=== PATIENT | female | born 1960 | race Two or more races ===

== ENCOUNTER 2024-06-30 16:25 | Emergency (ER) | payer MEDICAID, OTHER ==
[~2024-06-30] VITALS: Ht 144.8 cm; Wt 44.0 kg
[~2024-06-30 16:25] MED LIST: ACET-2605 GT; ACET-868 GT; ALPR0.5T GT; BISA10SU11 RC; CHLO473M5 MM; CLOB15CR4 TP; CRAN425C6 GT; ENAL2.5T17 GT; FERR325T28 GT; IPRA4AER IH; LABE100T5 GT; LACT-209 GT; LANS30CA54 GT; LEVE100S GT; MAGN400O6 GT; NA P133E RC; SERT100T GT; TRAM50TA2 GT
[2024-06-30 20:56] VITALS: BP 115/72; TEMP 99.1; O2SAT 96
== END 2024-06-30 21:07 ==
LOC: ER 16:30
DX: N90.7 Vulvar cyst (principal); F41.9 Anxiety disorder, unspecified; G40.909 Epilepsy, unspecified, not intractable, without status epilepticus; G93.49 Other encephalopathy; I10 Essential (primary) hypertension; K21.9 Gastro-esophageal reflux disease without esophagitis; Z79.899 Other long term (current) drug therapy; Z88.0 Allergy status to penicillin

== ENCOUNTER 2025-03-11 04:33 | Inpatient (IN) | payer OTHER ==
[~2025-03-11] VITALS: Ht 165.1 cm; Wt 45.2 kg
[2025-03-11 04:56] LABS: PLATELET COUNT (AUTO) 324 K/uL (150-450); RED BLOOD CELL COUNT(AUTO) 4.02 MIL/uL (4.0-5.2); RED CELL DISTRIBUTION WIDTH 16.1 % (11.5-15.0); WHITE BLOOD COUNT (AUTO) 13.1 K/uL (4.3-11.0)
[2025-03-11 05:05] LABS: CALCIUM, SERUM 8.6 mg/dL (8.5-10.1); CREATININE 1.0 mg/dL (0.6-1.3); SODIUM SERUM 135.0 mmol/L (136-145); UREA NITROGEN, BLOOD 66.0 mg/dL (7-18)
[2025-03-11] MEDS ORDERED: ACETAMINOPHEN 650 MG/SUPP.RECT RC ONE (05:05)
[2025-03-11] MEDS: ACETAMINOPHEN 650 MG/SUPP.RECT RC ONE (05:16)
[2025-03-11] MEDS: IV NS 0.9% 1,000 ML BAG IV ONE (05:16)
[2025-03-11 05:17] LABS: ASPARTATE AMINOTRANSFERASE 14.0 U/L (15-37); TOTAL PROTEIN, SERUM 7.1 g/dL (6.4-8.2)
[2025-03-11 05:30] LABS: LYMPHOCYTES % (MANUAL) 3 % (16-48); MONOCYTES % (MANUAL) 1 % (0-11.0); NEUTROPHILS % (MANUAL) 96 (42-76); PLATELET ESTIMATE ADEQUATE
[2025-03-11 05:35] LABS: INR 1.05 (0.91-1.10)
[2025-03-11 05:37] LABS: AMPHETAMINE, URINE NEGATIVE (NEGATIVE); BARBITURATE, URINE NEGATIVE (NEGATIVE); BENZODIAZEPINE, URINE NEGATIVE (NEGATIVE); CANNABINOID, URINE NEGATIVE (NEGATIVE); COCCAINE, URINE NEGATIVE (NEGATIVE); OPIATE, URINE NEGATIVE (NEGATIVE)
[2025-03-11] MEDS ORDERED: LORAZEPAM INJ 2 MG/ML VIAL ONE (05:44)
[2025-03-11] MEDS: LORAZEPAM INJ 2 MG/ML VIAL IV ONE (05:47)
[2025-03-11 06:00] LABS: APPEARANCE,URINE TURBID (CLEAR)
[2025-03-11 06:01] LABS: UGLUCOSE NEGATIVE (NEGATIVE)
[2025-03-11 06:02] LABS: BLOOD, URINE TRACE Ery/uL (NEGATIVE)
[2025-03-11 06:03] LABS: LEUKOCYTE ESTERASE ,URINE LARGE (NEGATIVE); NITRITE, URINE NEGATIVE (NEGATIVE)
[2025-03-11] MEDS ORDERED: CEFEPIME 1 GM VIAL ONE (06:17)
[2025-03-11] MEDS: CEFEPIME 1 GM in IV D5W 50 ML IV ONE (06:25)
[2025-03-11] MEDS: IV LR 1000 ML 1,000 ML IV ONE (06:25)
[2025-03-11 06:26] LABS: ADD URINE CULTURE YES; SQUAMOUS EPITHELIAL CELL,UR 0-2 /HPF (None Seen)
[2025-03-11 06:31] LABS: LACTIC ACID 3.4 mmol/L (0.4-2.0)
[2025-03-11] MEDS ORDERED: HALOPERIDOL LACTATE INJ 5 MG/ML VIAL ONE (06:42)
[2025-03-11] MEDS: HALOPERIDOL LACTATE INJ 5 MG/ML VIAL IV ONE (06:47)
[2025-03-11] MEDS ORDERED: PARO20TA7 GT (09:35)
[2025-03-11] MEDS ORDERED: ASPI-1169 GT (09:35)
[2025-03-11] MEDS ORDERED: LORA-258 GT (09:35)
[2025-03-11] MEDS ORDERED: DOCU100C36 GT (09:35)
[2025-03-11] MEDS ORDERED: QUET50TA PO (09:35)
[2025-03-11] MEDS ORDERED: AMIN30LI66 GT (09:35)
[2025-03-11] MEDS ORDERED: VALP250S22 GT (09:35)
[2025-03-11] MEDS ORDERED: MULT-213 GT (09:35)
[2025-03-11] MEDS ORDERED: LIDO30AD10 TP (09:35)
[2025-03-11] MEDS ORDERED: ASCO500T20 GT (09:35)
[2025-03-11] MEDS ORDERED: QUET25TA GT (09:35)
[2025-03-11] MEDS: NOREPINEPHRINE 8 MG in IV NS 0.9% 250 ML IV ONE (10:20)
[2025-03-11] MEDS ORDERED: ONDANSETRON HCL/PF 4 MG/2 ML VIAL IVP PRN (11:00)
[2025-03-11] MEDS ORDERED: MAGNESIUM HYDROXIDE 30 ML UDC PO PRN (11:00)
[2025-03-11] MEDS ORDERED: ACETAMINOPHEN 325 MG TABLET PO PRN (11:00)
[2025-03-11] MEDS ORDERED: DOSING PER PHARMACY-CEFEPIME IVPB XX PRN (11:00)
[2025-03-11] MEDS ORDERED: MAG HYDROX/AL HYDROX/SIMETH 30 ML UDC PO PRN (11:00)
[2025-03-11] MEDS ORDERED: ZOLPIDEM TARTRATE 5 MG TABLET PO PRN (11:00)
[2025-03-11] MEDS: ENOXAPARIN SODIUM 40 MG/0.4 ML DISP.SYRIN SQ SCH (11:58)
[2025-03-11 12:00] VITALS: BP 95/61; TEMP 97.1; O2SAT 97
[2025-03-11] MEDS: IV NS 0.9% 1,000 ML IV PRN (14:10)
[2025-03-11] MEDS ORDERED: MAGNESIUM HYDROXIDE 30 ML UDC GT PRN (15:00)
[2025-03-11] MEDS ORDERED: BISACODYL SUPP (10 MG) 10 MG/SUPP.RECT SUPP.RECT RC PRN (15:00)
[2025-03-11] MEDS ORDERED: NA PHOS,M-B/NA PHOS,DI-BA 1 EA ENEMA RC PRN (15:00)
[2025-03-11 16:00] VITALS: BP 119/62; TEMP 98.1; O2SAT 95
[2025-03-11] MEDS: VALPROIC ACID 250 MG/5 ML UDC GT SCH (16:33)
[2025-03-11] MEDS: PROSOURCE / PROSTAT (PYXIS) 30 ML UDC GT SCH (16:33)
[2025-03-11] MEDS: LABETALOL HCL (100MG) 100 MG TABLET GT SCH (16:34)
[2025-03-11] MEDS: LORAZEPAM 0.5 MG TABLET GT PRN (16:34)
[2025-03-11] MEDS ORDERED: METOPROLOL TARTRATE 25 MG TABLET PO PRN (17:30)
[2025-03-11] MEDS: JEVITY 1.2 CAL 1,000 ML BOTTLE GT SCH (18:28)
[2025-03-11] MEDS: ALBUTEROL FS 2.5 MG/3 ML VIAL.NEB NEB SCH (19:30)
[2025-03-11 19:46] VITALS: O2SAT 96; O2SAT 97
[2025-03-11] MEDS: IPRATROPIUM NEB FS 0.5 MG/2.5 ML AMPUL.NEB NEB SCH (19:46)
[2025-03-11 20:00] VITALS: BP 96/56; TEMP 101.3; O2SAT 91; O2SAT 96
[2025-03-11] MEDS: ACETAMINOPHEN 325 MG TABLET PO PRN (20:00)
[2025-03-11] MEDS: QUETIAPINE FUMARATE 25 MG TABLET PO SCH (21:53)
[2025-03-11] MEDS: CLOBETASOL 0.05% OINT 30 GM TUBE TP SCH (21:53)
[2025-03-11] MEDS: LEVETIRACETAM SOL (5 ML) 100 MG/ML UDC GT SCH (21:53)
[2025-03-12] VITALS (14 sets, daily range): BP systolic 94–135; BP diastolic 55–87; TEMP 97.9–100.8; O2SAT 95–100
[2025-03-12] MEDS: CEFEPIME 2 GM in IV D5W 100 ML IV SCH (05:07)
[2025-03-12 06:03] LABS: PLATELET COUNT (AUTO) 344 K/uL (150-450); RED BLOOD CELL COUNT(AUTO) 3.89 MIL/uL (4.0-5.2); RED CELL DISTRIBUTION WIDTH 16.7 % (11.5-15.0); WHITE BLOOD COUNT (AUTO) 21.5 K/uL (4.3-11.0)
[2025-03-12 06:17] LABS: CALCIUM, SERUM 7.9 mg/dL (8.5-10.1); CREATININE 0.8 mg/dL (0.6-1.3); PHOSPHORUS 3.9 mg/dL (2.5-4.9); SODIUM SERUM 144.0 mmol/L (136-145); UREA NITROGEN, BLOOD 38.0 mg/dL (7-18)
[2025-03-12] MEDS: PAROXETINE HCL 20 MG TABLET GT SCH (08:55)
[2025-03-12] MEDS: PANTOPRAZOLE 40 MG TABLET.DR PO SCH (08:55)
[2025-03-12] MEDS: ASPIRIN 81 MG TAB.CHEW GT SCH (08:55)
[2025-03-12] MEDS: MULTIVIT W/MINERALS 1 TAB TABLET GT SCH (08:56)
[2025-03-12] MEDS: QUETIAPINE FUMARATE 25 MG TABLET GT SCH (08:56)
[2025-03-12] MEDS: ASCORBIC ACID 500 MG TABLET GT SCH (08:57)
[2025-03-12] MEDS: DOCUSATE SODIUM 100 MG CAPSULE PO SCH (08:57)
[2025-03-12] MEDS: LIDOCAINE 5% (PATCH) 1 EA PATCH TP SCH (09:07)
[2025-03-13] VITALS (13 sets, daily range): BP systolic 103–142; BP diastolic 56–78; TEMP 98.4–99.3; O2SAT 96–99
[2025-03-13 07:14] LABS: PLATELET COUNT (AUTO) 320 K/uL (150-450); RED BLOOD CELL COUNT(AUTO) 3.28 MIL/uL (4.0-5.2); RED CELL DISTRIBUTION WIDTH 16.0 % (11.5-15.0); WHITE BLOOD COUNT (AUTO) 15.9 K/uL (4.3-11.0)
[2025-03-13 07:23] LABS: CALCIUM, SERUM 8.1 mg/dL (8.5-10.1); CREATININE 0.5 mg/dL (0.6-1.3); PHOSPHORUS 3.1 mg/dL (2.5-4.9); SODIUM SERUM 150.0 mmol/L (136-145); UREA NITROGEN, BLOOD 22.0 mg/dL (7-18)
[2025-03-13 07:34] LABS: CREATININE, URINE < 13.0 MG/DL (30.0-125.0); URINE SODIUM, RANDOM 120 mmol/l (40-220); URINE TOTAL PROTEIN 28.5 mg/dL (0-11.9)
[2025-03-13] MEDS: IV D5W 1,000 ML IV ONE (10:23)
[2025-03-13] MEDS: DOCUSATE SODIUM LIQ 100 MG/10 ML UDC GT SCH (10:28)
[2025-03-13] MEDS: Z GUARD REMEDY 4 OZ OINT TP PRN (10:29)
[2025-03-13 10:47] LABS: EOSINOPHILS % (MANUAL) 1 % (0-4); LYMPHOCYTES % (MANUAL) 4 % (16-48); MONOCYTES % (MANUAL) 9 % (0-11.0); MYELOCYTES % 1 % (0-0); NEUTROPHILS % (MANUAL) 85 (42-76); PLATELET ESTIMATE ADEQUATE
[2025-03-13] MEDS: CEFEPIME 2 GM in IV D5W 100 ML IV SCH (16:29)
[2025-03-13] MEDS: FREE WATER VIA TUBE FEEDING GT SCH (18:07)
[2025-03-13] MEDS: ACETAMINOPHEN ES 500 MG TABLET GT PRN (18:07)
[2025-03-13] MEDS: LEVOFLOXACIN (250MG) 250 MG TABLET GT SCH (20:30)
[2025-03-14] VITALS (12 sets, daily range): BP systolic 117–128; BP diastolic 66–78; TEMP 98.4–99.1; O2SAT 94–99
[2025-03-14 06:21] LABS: PLATELET COUNT (AUTO) 347 K/uL (150-450); RED BLOOD CELL COUNT(AUTO) 3.24 MIL/uL (4.0-5.2); RED CELL DISTRIBUTION WIDTH 16.3 % (11.5-15.0); WHITE BLOOD COUNT (AUTO) 18.4 K/uL (4.3-11.0)
[2025-03-14 07:34] LABS: ASPARTATE AMINOTRANSFERASE 12.0 U/L (15-37); CALCIUM, SERUM 7.6 mg/dL (8.5-10.1); CREATININE 0.4 mg/dL (0.6-1.3); PHOSPHORUS 3.3 mg/dL (2.5-4.9); SODIUM SERUM 138.0 mmol/L (136-145); TOTAL PROTEIN, SERUM 5.7 g/dL (6.4-8.2); UREA NITROGEN, BLOOD 18.0 mg/dL (7-18)
[2025-03-14] MEDS: ALBUMIN 25% 25 GM in PREMIX 1 EA IV ONE (10:05)
[2025-03-15] VITALS (9 sets, daily range): BP systolic 106–116; BP diastolic 62–64; TEMP 98.1–99.7; O2SAT 96–100
[2025-03-15 06:40] LABS: PLATELET COUNT (AUTO) 407 K/uL (150-450); RED BLOOD CELL COUNT(AUTO) 3.19 MIL/uL (4.0-5.2); RED CELL DISTRIBUTION WIDTH 15.7 % (11.5-15.0); WHITE BLOOD COUNT (AUTO) 13.9 K/uL (4.3-11.0)
[2025-03-15 07:02] LABS: CALCIUM, SERUM 8.1 mg/dL (8.5-10.1); CREATININE 0.4 mg/dL (0.6-1.3); PHOSPHORUS 3.6 mg/dL (2.5-4.9); SODIUM SERUM 139.0 mmol/L (136-145); UREA NITROGEN, BLOOD 15.0 mg/dL (7-18)
[2025-03-15] MEDS ORDERED: LEVO250T59 GT (11:11)
[2025-03-15] MEDS ORDERED: DOCU50LI GT (11:11)
[2025-03-15] MEDS ORDERED: IPRA0.2S9 NEB (11:11)
== END 2025-03-15 15:00 | DRG 720 ==
LOC: ER 04:37 → TELE1 10:13 → MEDSG1 03-12 10:17
PROVIDERS: ADMIT Student in an Organized Health Care Education/Training Program; ATTEND Student in an Organized Health Care Education/Training Program
DX: A41.59 Other Gram-negative sepsis (principal); E87.20 Acidosis, unspecified; E43 Unspecified severe protein-calorie malnutrition; G81.91 Hemiplegia, unspecified affecting right dominant side; E87.0 Hyperosmolality and hypernatremia; G93.49 Other encephalopathy; Z93.0 Tracheostomy status; R13.10 Dysphagia, unspecified; E86.9 Volume depletion, unspecified; J96.10 Chronic respiratory failure, unspecified whether with hypoxia or hypercapnia; N39.0 Urinary tract infection, site not specified; B96.89 Other specified bacterial agents as the cause of diseases classified elsewhere; L89.899 Pressure ulcer of other site, unspecified stage; B96.4 Proteus (mirabilis) (morganii) as the cause of diseases classified elsewhere; N17.9 Acute kidney failure, unspecified; I10 Essential (primary) hypertension; G40.909 Epilepsy, unspecified, not intractable, without status epilepticus; F03.94 Unspecified dementia, unspecified severity, with anxiety; D64.9 Anemia, unspecified; E87.5 Hyperkalemia; E87.1 Hypo-osmolality and hyponatremia; Z20.822 Contact with and (suspected) exposure to COVID-19; K21.9 Gastro-esophageal reflux disease without esophagitis; Z93.1 Gastrostomy status; Z86.73 Personal history of transient ischemic attack (TIA), and cerebral infarction without residual deficits; F41.9 Anxiety disorder, unspecified; Z86.69 Personal history of other diseases of the nervous system and sense organs; Z79.899 Other long term (current) drug therapy; Z88.0 Allergy status to penicillin; Z79.82 Long term (current) use of aspirin; R27.8 Other lack of coordination; Z79.51 Long term (current) use of inhaled steroids; L97.529 Non-pressure chronic ulcer of other part of left foot with unspecified severity; M20.12 Hallux valgus (acquired), left foot; M20.42 Other hammer toe(s) (acquired), left foot
CPT/HCPCS: 36415; 71045-TC; 71250-TC; 73630-TC; 80048-TC; 80053-TC; 80076-TC; 81001; 82570-TC; 83605-TC; 83735-TC; 84100-TC; 84300-TC; 84439-TC; 84443-TC; 85025-TC; 85027-TC; 85730-TC; 87040-TC; 87081-TC; 87086-TC; 87186-TC; 94760-TC; 94761-TC; 94799-TC; A4216; A4223; A6213; G0378; J0692; J1630; J1650; J1953; J2060; J7030; J7050; J7060; J7070; J7120; P9047